=== PATIENT | female | born 1960 | race Hispanic/Latino ===

== ENCOUNTER → 2024-10-27 | Outpatient (CLI) | payer OTHER ==
--- NOTE | 2024-10-27 12:57 | HMCIMG ---
CT HEART SAVER PROMOTIONAL HISTORY: Cardiac calcification scoring. FINDINGS: The cardiac calcification scoring is 0. Limited examination of the heart was performed. The study is done for additional or incidental findings. IMPRESSION: Small hiatal hernia predominantly contains mesenteric fat. Diffuse low attenuation of the liver parenchyma suggests fatty change. No no other additional findings.
== END | disposition home or self-care (01) ==
LOC: RAH 11:06
PROVIDERS: ATTEND Family Medicine
DX: Z13.6 Encounter for screening for cardiovascular disorders (principal); K44.9 Diaphragmatic hernia without obstruction or gangrene
CPT/HCPCS: 75571